=== PATIENT | female | born 1995 | race Hispanic/Latino ===

== ENCOUNTER 2019-07-09 06:05 | Day surgery (SDC) | payer SELFPAY ==
[~2019-07-09] VITALS: Ht 167.6 cm; Wt 62.5 kg
[2019-07-09] MEDS ORDERED: PROPOFOL 10 MG/ML 20ML VIAL IV ONE ×2 (06:46→10:28)
[2019-07-09] MEDS ORDERED: MIDAZOLAM HCL 1 MG/ML 2ML VIAL ONE ×2 (06:47→10:13)
[2019-07-09] MEDS ORDERED: LIDOCAINE HCL 1% 20 ML VIAL ONE (06:47)
[2019-07-09 06:58] VITALS: BP 89/41
[2019-07-09] MEDS: SODIUM CHLORIDE 0.9% 1000ML 1,000 ML IV ONE (07:16)
[2019-07-09 10:55] VITALS: BP 88/54
[2019-07-09 11:00] VITALS: BP 105/40
[2019-07-09 11:05] VITALS: BP 103/52
[2019-07-09 11:10] VITALS: BP 103/57
[2019-07-09 11:15] VITALS: BP 101/59
== END 2019-07-09 12:20 | disposition home or self-care (01) ==
LOC: DAH 06:05 → ENDO 06:05
PROVIDERS: ATTEND Internal Medicine
DX: K86.89 Other specified diseases of pancreas (principal); K29.70 Gastritis, unspecified, without bleeding; K21.9 Gastro-esophageal reflux disease without esophagitis; Z98.890 Other specified postprocedural states; Z82.49 Family history of ischemic heart disease and other diseases of the circulatory system
CPT/HCPCS: 43238; 43239; 81025; 88172; 88173; A4215 ×3; A4221; A4222; A4223; A4606; A4620; A4663; J2250 ×2; J2704 ×2; J7030